=== PATIENT | male | born 1970 | race Caucasian/White ===

== ENCOUNTER 2017-05-16 11:38 | Emergency (ER) | payer OTHER ==
--- NOTE | 2017-05-16 11:59 | UC ---
Dental HPI - History of Current Complaint Stated Complaint: DENTAL COMPLAINT Time Seen by Provider: 05/16/17 11:50 Hx Obtained From: Patient Onset/Duration: Gradual Onset - over past 2 days he has had increasing pain bottom R gum line (wears full dentures) Severity: Moderate Aggravating Factor(s): Chewing Alleviating Factor(s): Nothing - Allergies/Home Medications Allergies/Adverse Reactions: Allergies Allergy/AdvReac Type Severity Reaction Status Date / Time Amoxicillin Allergy Hives Verified 05/16/17 11:51 Morphine Allergy Hives Verified 05/16/17 11:51 Sulfa Drugs AdvReac Severe Vomiting Verified 05/16/17 11:51 Home Medications: Home Medications Acetaminophen [Tylenol] 650 mg PO DAILY PRN 05/16/17 [History Confirmed 05/16/17 ] PMH/Surg Hx/FS Hx/Imm Hx Previously Healthy: Yes Psychological History: Anxiety, Depression Other History Of: Negative For: Anticoagulant Therapy - Surgical History Surgical History: Yes Surgery Procedure, Year, and Place: (screwbilateral hernia ; knee right x 2; left ankle(screw); - Family History Known Family History: Positive: Hypertension - Social History Occupation: Disabled Lives: Alone Alcohol Use: Rare Substance Use Type: Marijuana Smoking Status (MU): Light Every Day Tobacco Smoker Cessation Counseling: Patient Advised to Stop Review of Systems Constitutional: Negative Respiratory: Negative Cardiovascular: Negative Neurological: Negative Psychological: Negative Is Patient Immunocompromised?: No All Other Systems Reviewed And Are Negative: Yes Physical Exam Triage Information Reviewed: Yes Appearance: Well-Appearing, No Pain Distress, Thin Vital Signs Reviewed: Yes ENT Exam: Normal ENT: Positive: TMs normal Dental: Positive: Other: - bottom R sided gum (after dentures removed): erythemic, swollen, tender, no fluctuant area, no drainage oral cavity moist bilaterally Neck exam: Normal Neck: Positive: Tenderness @ - R ant cervical lymph nodes Respiratory Exam: Normal Cardiovascular Exam: Normal Neurological: Positive: Alert Psychological Exam: Normal Skin Exam: Normal Dental Complaint Course/Dx - Course Course Of Treatment: iStop Reference #: [id number] - Differential Dx/Diagnosis Differential Diagnosis/Dx: Gingivitis, Pharyngitis, Other - blocked salivary gland, soft tissue infection Provider Diagnoses: soft tissue infection R lower gum Discharge - Discharge Plan Condition: Stable Disposition: HOME Prescriptions: Clindamycin HCl [Clindamycin 150 MG CAP*] 150 mg PO QID #28 cap Patient Education Materials: Cellulitis (ED) Referrals: Helen Rebollar MD [Primary Care Provider] - 2 Days (recheck) Additional Instructions: use Tylenol (over the counter) as directed for pain apply Oragel to gum as directed for pain Use antibiotic as prescribed
[2017-05-16 12:00] VITALS: BP 94/82
== END 2017-05-16 12:28 | disposition home or self-care (01) ==
LOC: UCEAST 11:38
DX: K04.7 Periapical abscess without sinus (principal); F17.210 Nicotine dependence, cigarettes, uncomplicated
CPT/HCPCS: 99212; G0463